=== PATIENT | female | born 1990 | race Caucasian/White ===

== ENCOUNTER 2021-04-07 09:33 | Outpatient (CLI) | payer OTHER, SELFPAY ==
[2021-04-07 09:38] VITALS: BP 129/92; PULSE 86; RESP 20; TEMP 36.4; O2SAT 98; BMI 37.8
[2021-04-07 10:27] VITALS: BP 117/77; PULSE 72; RESP 20; TEMP 36.6; O2SAT 98
[2021-04-07 11:27] VITALS: BP 131/94; PULSE 70; RESP 17; TEMP 36.7; O2SAT 98
== END 2021-04-07 09:34 | disposition home or self-care (01) ==
LOC: OPS 09:37
PROVIDERS: PCP Family Medicine; Visit Provider Family Medicine
DX: U07.1 COVID-19 (principal)
CPT/HCPCS: 96365

== ENCOUNTER 2022-06-17 07:41 | Emergency (ER) | payer OTHER, SELFPAY ==
[2022-06-17 07:48] VITALS: BP 148/93; PULSE 88; RESP 18; TEMP 36.3; O2SAT 100; BMI 38.6
--- NOTE | 2022-06-17 07:58 | XRR_ITS ---
PROCEDURE INFORMATION: Exam: XR Chest Exam date and time: 06/17/2022 8:04 AM Age: 32 years old Clinical indication: Cough and dyspnea; Additional info: Dyspnea/cough TECHNIQUE: Imaging protocol: Radiologic exam of the chest. Views: 1 view. COMPARISON: CT abdomen pelvis w con* [id number] 03/16/2016 11:00 PM FINDINGS: Lungs: Normal lung volumes. No interstitial or airspace opacities. Pleural spaces: No pleural effusion. No pneumothorax. Heart/Mediastinum: Normal heart size. Normal mediastinal contour. Midline trachea. Bones/joints: No acute abnormalities. XR/XR chest 1V portable [id number] IMPRESSION: No chest radiographic evidence of acute cardiopulmonary disease.
--- NOTE | 2022-06-17 08:04 | ED_ITS ---
HPI - SOB/Dyspnea General: Chief Complaint: Shortness of Breath/Dyspnea Stated Complaint: SOB, coughing, headpain Time Seen by Provider: 06/17/22 07:52 Source: patient Mode of arrival: ambulatory History of Present Illness: HPI Narrative: 32-year-old female presents to the emergency room with complaints of shortness of breath cough. Patient recently had a thyroid ultrasound due to 6 mm nodule. She is reporting a headache and neck pain also saying she is Coughing up calcifications . Reports sore throat. Patient has no stridor. She denies any chest pain or abdominal pain. No fever sweats or chills. Onset (ago): day(s) Severity: mild Exacerbating factors: nothing Relieving factors: nothing Associated symptoms: Reports cough and other (Headache); Deny abdominal pain, chest congestion, chest pain, diaphoresis, dizziness, extremity pain, fever(s), hemoptysis, lightheadedness, myalgias, nausea, orthopnea, palpitations, paresthesias, polydipsia, polyuria, rash, sense of impending doom, syncope or vomiting Treatment prior to arrival: none Review of Systems Const: Denies: fever(s), chills, fatigue, malaise or diaphoresis ENMT: Reports: throat pain; Denies: ear or mastoid pain, nasal discharge or nasal congestion Card: Denies: chest pain, palpitations, lightheadedness, syncope or orthopnea Resp: Denies: hemoptysis or chest congestion GI: Denies: abdominal pain, nausea or vomiting : Denies: flank pain, difficulty voiding, dysuria, urinary frequency or urinary urgency Musc: Denies: neck pain, back pain or extremity pain Skin/Breast: Denies: rash or pruritus Neuro: Reports: headache(s); Denies: dizziness Endo: Denies: polyuria or polydipsia PFS ED PFSH: Medical History (Updated 06/17/22 @ 11:19 by Felice Holland DO) Hypothyroid Thyroid nodule Physical Exam Const: COMMON NORMALS: no acute distress GENERAL APPEARANCE: cooperative and comfortable ORIENTATION/CONSCIOUSNESS: Yes awake, Yes oriented to person, Yes oriented to place and Yes oriented to time HENMT: COMMON NORMALS: normocephalic, atraumatic, hearing grossly normal bilaterally and Normal nasal mucous membranes and turbinates present HEAD & SCALP: normocephalic and atraumatic NOSE: Normal nasal mucous membranes and turbinates present THROAT: posterior oropharynx normal Eye: COMMON NORMALS: Equal, round and reactive pupils present, EOMs intact bilaterally, conjunctivae normal and no scleral icterus CONJUNCTIVA: Yes conjunctivae normal PUPIL: Yes Equal, round and reactive pupils present Neck/C-Spine: COMMON NORMALS: full ROM, no lymphadenopathy, supple and no JVD Lymph: LYMPHATIC: no lymphadenopathy noted and no lymphedema noted Resp: COMMON NORMALS: normal respiratory effort, No retractions, No use of accessory muscles and clear to auscultation bilaterally AUSCULTATION: clear to auscultation bilaterally Cardio: COMMON NORMALS: no JVD, regular rate, regular rhythm and No murmurs present (Cardio) RATE: regular rate RHYTHM: regular rhythm GI: COMMON NORMALS: Soft to palpation and No hepatosplenomegaly present AUSCULTATION: Yes normoactive bowel sounds PALPATION: Yes Soft to palpation, No Tenderness to palpation present (GI), No Guarding due to palpation present (GI) and Yes No hepatosplenomegaly present Extremity: COMMON NORMALS: normal to inspection, capillary refill normal, no clubbing, cyanosis or edema, no calf tenderness and no pedal edema Neuro: SENSORIUM/ORIENTATION: Yes oriented to person, Yes oriented to place and Yes oriented to time Skin: COMMON NORMALS: no rashes or lesions noted GENERAL SKIN EXAM: no rashes or lesions noted Course Vital Signs: Vital signs: Vital Signs Temperature 97.4 F L 06/17/22 07:48 Pulse Rate 88 06/17/22 07:48 Respiratory Rate 18 06/17/22 07:48 Blood Pressure 148/93 06/17/22 07:48 Pulse Oximetry 100 06/17/22 07:48 Oxygen Delivery Me thod 06/17/22 07:48 MDM - SOB/Dyspnea Medical Decision Making Chest x-ray and labs are unremarkable exam unremarkable as well rapid strep is negative. She was concerned that the thyroid nodule was the cause of this. Reassurance given a 6 mm thyroid nodule would not be expected to cause these types of symptoms she does not have any signs of thyroid storm her rapid strep is negative. There is no lymphadenopathy. Suspect this is a viral upper respiratory infection. She is given steroids. Follow-up with her primary care if not improving Medical Records I reviewed the patient's medical records. Lab Data I reviewed the patient's lab results. 06/17/22 09:28 06/17/22 08:20 Labs/Radiology: Radiology Impressions Chest X-Ray 06/17/22 07:58 IMPRESSION: No chest radiographic evidence of acute cardiopulmonary disease. Laboratory Results WBC 6.5 10^3/uL (4.0-10.0) 06/17/22 09:28 Corrected WBC Cancelled 06/17/22 08:20 RBC 4.17 10^6/uL (4.1-5.3) 06/17/22 09:28 Hgb 11.8 g/dL (11.5-15.3) 06/17/22 09:28 Hct 37.6 % (37.0-47.0) 06/17/22 09:28 MCV 90.2 fl (81-99) 06/17/22 09:28 MCH 28.3 pg (28.0-34.0) 06/17/22 09:28 MCHC 31.4 g/dL (30.0-36.0) 06/17/22 09:28 RDW 13.5 % (12.1-15.1) 06/17/22 09:28 Plt Count 210 10^3/cmm (130-400) 06/17/22 09:28 MPV 10.4 fL (7.4-10.4) 06/17/22 09:28 Gran % Cancelled 06/17/22 08:20 Neut % (Auto) 63.1 % 06/17/22 09:28 Lymph % (Auto) 26.7 % 06/17/22 09:28 Converse % (Auto) 7.0 % 06/17/22 09:28 Eos % (Auto) 2.3 % 06/17/22 09:28 Baso % (Auto) 0.6 % 06/17/22 09:28 Neut # (Auto) 4.07 10^3/uL (1.8-7.7) 06/17/22 09:28 Lymph # (Auto) 1.7 10^3/uL (0.8-4.8) 06/17/22 09:28 Converse # (Auto) 0.5 10^3/uL (0.2-0.9) 06/17/22 09:28 Eos # (Auto) 0.2 10^3/uL (0.0-0.8) 06/17/22 09:28 Baso # (Auto) 0.0 10^3/uL (0.0-0.1) 06/17/22 09:28 Absolute Gran (auto) Cancelled 06/17/22 08:20 Nucleated RBC % (auto) 0 % 06/17/22 09:28 Nucleated RBCs # 0.0 /100WBC 06/17/22 09:28 Sodium 139 mmol/L (136-145) 06/17/22 08:20 Potassium 3.3 mmol/L (3.5-5.1) L 06/17/22 08:20 Chloride 104 mmol/L (98-107) 06/17/22 08:20 Carbon Dioxide 23 mmol/L (22-29) 06/17/22 08:20 Anion Gap 15.3 (5-19) 06/17/22 08:20 BUN 15 mg/dL (6-20) 06/17/22 08:20 Creatinine 0.6 mg/dL (0.5-0.9) 06/17/22 08:20 GFR Calculation 114.4 mL/min (90-130) 06/17/22 08:20 Glucose 134 mg/dL (65-115) H 06/17/22 08:20 Calculated Osmolality 291 mOsm/kg (285-295) 06/17/22 08:20 Calcium 9.8 mg/dL (8.5-10.5) 06/17/22 08:20 Total Bilirubin 0.4 mg/dL (0.15-1.2) 06/17/22 08:20 AST 19 U/L (0-32) 06/17/22 08:20 ALT 29 U/L (0-33) 06/17/22 08:20 Alkaline Phosphatase 64 U/L (35-105) 06/17/22 08:20 Total Protein 7.5 g/dL (6.6-8.7) 06/17/22 08:20 Albumin 4.3 g/dL (3.5-5.2) 06/17/22 08:20 Globulin 3.2 g/dL (1.3-4.6) 06/17/22 08:20 Group A Strep Rapid Negative (Negative) 06/17/22 08:04 Discharge Plan Discharge Patient Disposition: Home Clinical Impression: Pharyngitis, Thyroid nodule Condition: Stable Prescriptions: New Medrol (Damon) 4 mg tablets,dose pack See Rx Instructions .ROUTE .COMPLEX Qty: 21 0RF Rx Instructions: orally per package directions No Action Zyrtec 10 mg Tablet 10 mg PO DAILY venlafaxine 150 mg capsule,extended release 24hr 150 mg PO BEDTIME levothyroxine 50 mcg tablet 50 mcg PO QAM Prilosec OTC 20 mg Tablet,Delayed Release (Dr/Ec) 20 mg PO DAILY Discharge Orders: Discharge ED (Routine); Ordered 06/17/22 Ordered By: Felice Holland Referrals: Anthony Patel DO [Primary Care Provider] - Discharge Diet: Usual diet Discharge Activity: Increase activity as tolerated Patient Instructions: Opioid Safety, Pain Management Activity Restrictions/Additional Instructions: Follow-up with Dr. Patel and ENT as scheduled. If you have worsening symptoms follow-up with your primary care doctor. Coding Level of Care Code ED Position Classification Specialist for Vijay Diallo
[2022-06-17 08:29] LABS: Rapid Strep A Test Negative (Negative)
[2022-06-17] MEDS: acetaminophen 500 mg Tablet 1000 MG PO (09:02)
[2022-06-17 09:23] LABS: Alanine Aminotransferase 29 U/L (0-33); Albumin Level 4.3 g/dL (3.5-5.2); Alkaline Phosphatase 64 U/L (35-105); Anion Gap 15.3 (5-19); Aspartate Amino Transferase 19 U/L (0-32); Blood Urea Nitrogen 15 mg/dL (6-20); Calcium 9.8 mg/dL (8.5-10.5); Carbon Dioxide 23 mmol/L (22-29); Chloride 104 mmol/L (98-107); Globulin 3.2 g/dL (1.3-4.6); Glomerular Filtration Rate 114.4 mL/min (90-130); Glucose 134 mg/dL (65-115); Osmolality Calculated 291 mOsm/kg (285-295); Potassium 3.3 mmol/L (3.5-5.1); Sodium 139 mmol/L (136-145); Total Bilirubin 0.4 mg/dL (0.15-1.2); Total Protein 7.5 g/dL (6.6-8.7)
[2022-06-17 09:44] LABS: Basophils % 0.6 %; Eosinophils # 0.2 10^3/uL (0.0-0.8); Eosinophils % 2.3 %; Hematocrit 37.6 % (37.0-47.0); Hemoglobin 11.8 g/dL (11.5-15.3); Lymphocytes # 1.7 10^3/uL (0.8-4.8); Lymphocytes % 26.7 %; Mean Corpuscular HGB Conc 31.4 g/dL (30.0-36.0); Mean Corpuscular Hemoglobin 28.3 pg (28.0-34.0); Mean Corpuscular Volume 90.2 fl (81-99); Mean Platelet Volume 10.4 fL (7.4-10.4); Monocytes # 0.5 10^3/uL (0.2-0.9); Neutrophils # 4.07 10^3/uL (1.8-7.7); Neutrophils % 63.1 %; Nucleated Red Blood Cells % 0 %; Platelet Count 210 10^3/cmm (130-400); Red Blood Count 4.17 10^6/uL (4.1-5.3); Red Cell Distribution Width 13.5 % (12.1-15.1); White Blood Count 6.5 10^3/uL (4.0-10.0)
[2022-06-17] MEDS: dexamethasone 10 mg/mL INJ IVP (09:52)
== END 2022-06-17 10:49 | disposition home or self-care (01) ==
PROVIDERS: Emergency Provider Family Medicine; PCP Electrodiagnostic Medicine
DX: J02.9 Acute pharyngitis, unspecified (principal); E04.1 Nontoxic single thyroid nodule
CPT/HCPCS: 36415; 71045; 80053; 85025; 87081; 87880; 96374; 99284; J1100

== ENCOUNTER 2022-06-25 08:50 | Outpatient (CLI) | payer OTHER, SELFPAY ==
--- NOTE | 2022-06-25 09:02 | CTR_ITS ---
PROCEDURE INFORMATION: Exam: CT Neck With Contrast Exam date and time: 06/25/2022 9:17 AM Age: 32 years old Clinical indication: Enlarged lymph nodes; Generalized; Prior surgery; Surgery type: Tonsilectomy; Patient HX: Thyroid nodule, hair loss, cough; Additional info: Thyroid nodule, stat TECHNIQUE: Imaging protocol: Computed tomography of the neck with contrast. Radiation optimization: All CT scans at this facility use at least one of these dose optimization techniques: automated exposure control; mA and/or kV adjustment per patient size (includes targeted exams where dose is matched to clinical indication); or iterative reconstruction. Contrast material: OMNI 350; Contrast volume: 100 ml; Contrast route: INTRAVENOUS (IV); REPORTING DATA: Count of CT and Cardiac NM exams in prior 12 months: This patient has received 0 known CTs and 0 known cardiac nuclear medicine studies in the 12 months prior to the current study. COMPARISON: [place] thyroid [id number] 06/11/2022 9:17 AM RADIATION DOSE METRICS: Total DLP (mGy-cm): 279.41 FINDINGS: Paranasal sinuses: Visualized paranasal sinuses appear unremarkable. Pharynx: No significant tonsillar enlargement. Unremarkable. Larynx: Normal epiglottis. Prevertebral and retropharyngeal spaces: Unremarkable. Salivary glands: Glands are normal in size. Thyroid: Normal size and attenuation of the thyroid glands. No enlarged or calcified nodules. Lymph nodes: No neck lymphadenopathy. Trachea: Unremarkable. Lungs: Normal as visualized. Bones/joints: No acute abnormalities seen. Multiple radiopaque dental restorations are seen with associated artifact. Vasculature: No acute findings. Soft tissues: No significant soft tissue swelling. No fluid collections to suggest abscess. No radiopaque foreign body. CT/CT neck w con* [id number] IMPRESSION: Unremarkable CT of the neck with contrast. Unremarkable CT appearance of the thyroid glands.
[2022-06-25] MEDS: iohexol 350 mg/mL 500 mL Btl (per mL) IV (09:53)
== END 2022-06-25 08:51 | disposition home or self-care (01) ==
LOC: RAD 08:53
PROVIDERS: PCP Electrodiagnostic Medicine; Visit Provider Electrodiagnostic Medicine
DX: E04.1 Nontoxic single thyroid nodule (principal)
CPT/HCPCS: 70491; Q9967

== ENCOUNTER → 2023-01-23 13:06 | Outpatient (BNVA) | payer OTHER, SELFPAY | PROVIDERS: PCP Electrodiagnostic Medicine; Visit Provider Nurse Practitioner Family | DX: M25.561 Pain in right knee (principal) | CPT/HCPCS: 73562 ==

== ENCOUNTER 2023-01-27 06:00 | Outpatient (CLI) | payer OTHER, SELFPAY | END 2023-01-27 06:01 | disposition home or self-care (01) | LOC: SPT 01-28 10:01 | PROVIDERS: PCP Electrodiagnostic Medicine; Visit Provider Specialist | DX: Z46.89 Encounter for fitting and adjustment of other specified devices (principal); S82.141D Displaced bicondylar fracture of right tibia, subsequent encounter for closed fracture with routine healing; X58.XXXD Exposure to other specified factors, subsequent encounter | CPT/HCPCS: 97760; L1832 ==

== ENCOUNTER → 2023-01-27 14:04 | Outpatient (BNVA) | payer OTHER, SELFPAY | PROVIDERS: PCP Electrodiagnostic Medicine; Visit Provider Specialist | DX: S82.141A Displaced bicondylar fracture of right tibia, initial encounter for closed fracture (principal); W19.XXXA Unspecified fall, initial encounter | CPT/HCPCS: 73562 ==

== ENCOUNTER → 2023-07-01 10:52 | Outpatient (BNVA) | payer OTHER, SELFPAY | PROVIDERS: PCP Electrodiagnostic Medicine; Visit Provider Emergency Medicine | DX: R30.0 Dysuria (principal); R11.0 Nausea | CPT/HCPCS: 81000; 87086 ==

== ENCOUNTER → 2023-07-16 09:18 | Outpatient (BNVA) | payer OTHER, SELFPAY | PROVIDERS: PCP Nurse Practitioner; Visit Provider Nurse Practitioner | DX: M25.572 Pain in left ankle and joints of left foot (principal) | CPT/HCPCS: 73610 ==